=== PATIENT | male | born 1940 | race Asian ===

== ENCOUNTER 2016-12-18 15:51 | Emergency (ER) | payer OTHER, MEDICAID ==
[~2016-12-18] VITALS: Ht 167.6 cm; Wt 70.3 kg
[2016-12-18 16:00] VITALS: BP 179/73
[2016-12-18] MEDS ORDERED: Oxycodone/Acetaminophen 5-325 ORAL ONE (16:00)
[2016-12-18] MEDS ORDERED: PERCOCET 5-3251 EACH ORAL (17:16)
--- NOTE | 2016-12-18 17:28 | Diagnostic Imaging Report ---
Indications: PAIN Technique: Two views of the right humerus Comparison: None Findings: There is an oblique angulated fracture of the the distal humeral shaft, displaced by about one bone width. Impression: Positive for humeral fracture
--- NOTE | 2016-12-18 17:31 | Emergency Room Report ---
History of Present Illness General Chief Complaint: Upper Extremity Injury Source: Patient, Family Member Present Illness HPI [id number] BIBEMS with pain to right lateral aspect of humerus after accidental fall off 10ft ladder Patient allegedly drove home first, called son, who advised calling 911 Patient denies hitting head, LOC, other injury EMS states patient said he was NOT at top of ladder Not on AC, ASA pain is localized to lateral aspect of right humerus. Denies pain to shoulder, elbow, hand/wrist Allergies: Coded Allergies: No Known Allergies (Unverified , 12/18/16) Patient History Limited by: language barrier Past Medical History: none, see triage record Past Surgical History: none Pertinent Family History: none Social History: Denies: alcohol use, drug use, smoking Immunizations: UTD Reviewed Nursing Documentation: PMH: Agreed, PSxH: Agreed Nursing Documentation-PMH Past Medical History: No History, Except For Hx Hypertension: Yes Review of Systems All Other Systems: negative except mentioned in HPI Physical Exam Vital Signs Date Time Temp Pulse Resp B/P Pulse Ox O2 Delivery O2 Flow Rate FiO2 12/18/16 15:43 99.0 71 16 169/79 99 Room Air 12/18/16 16:00 2.0 Sp02 EP Interpretation: reviewed, normal General Appearance: normal inspection, well appearing, no apparent distress, alert, GCS 15, non-toxic Head: normocephalic, atraumatic Eyes: bilateral eye EOMI, bilateral eye PERRL ENT: normal ENT inspection, hearing grossly normal, normal voice Neck: normal inspection, full range of motion, supple, no bony tend Respiratory: normal inspection, lungs clear, normal breath sounds, no respiratory distress, no retraction, no wheezing Cardiovascular #1: regular rate, rhythm, no edema Gastrointestinal: normal inspection, normal bowel sounds, non tender, soft, no guarding, no hernia Genitourinary: no CVA tenderness Musculoskeletal: other - Right arm: obvious deformity and ttp to lateral aspect of right humerus. No pain and ROM to right shoulder intact. 2++ distal radius and brachial pulse. Sensation intact. Able to give thumbs up, OK sign with right hand. Neurovascularly intact. Neurologic: normal inspection, alert, oriented x3, responsive, electronic prepress technician III-XII nml as tested, motor strength/tone normal, speech normal Psychiatric: normal inspection, judgement/insight normal, mood/affect normal Skin: normal inspection, normal color, no rash Medical Decision Making Diagnostic Impression: Primary Impression: Fracture of humeral shaft, right, closed Qualified Codes: S42.301A - Unspecified fracture of shaft of humerus, right arm, initial encounter for closed fracture Additional Impression: Fall ER Course Right humeral shaft fracture neurovascularly intact Opiods PO given Coapatation splint placed with shoulder sling Spoke with son, advised PMD referral for Ortho tomorrow Rx Percocet DC home Other X-Ray Diagnostic Results Other X-Ray Diagnostic Results : X-Ray ordered: Right humerus # of Views/Limited Vs Complete: 3 View Indication: Pain EP Interpretation: Yes Interpretation: no dislocation, other - Right humeral shaft fracture Interpreting ER Provider: Electronically signed by Dr Kowalski Last Vital Signs Date Time Temp Pulse Resp B/P Pulse Ox O2 Delivery O2 Flow Rate FiO2 12/18/16 16:00 98.0 73 29 179/73 96 Nasal Cannula 2.0 Status: improved Disposition: HOME, SELF-CARE Condition: Improved Scripts Oxycodone/Acetaminophen 5-325* (PERCOCET 5-325 MG TABLET*) 1 Each Tablet 1 TAB ORAL Q6H Y for For Pain, #20 TAB Prov: JOSH KOWALSKI M.D. 12/18/16 Patient Instructions: Humerus Fracture Treated With Immobilization Additional Instructions: - You have a fracture of your mid-shaft of humerus - Keep splint on. - See Orthopedist in the next 1-2 days for followup - Take perocet as needed for severe pain JOSH KOWALSKI M.D. Dec 18, 2016 17:31
[2016-12-18 18:06] VITALS: BP 175/86
== END 2016-12-18 17:35 | disposition home or self-care (01) ==
LOC: EDBD 15:51 → EMR 16:43
DX: S42.301A Unspecified fracture of shaft of humerus, right arm, initial encounter for closed fracture (principal); W11.XXXA Fall on and from ladder, initial encounter; Y93.9 Activity, unspecified; Y92.9 Unspecified place or not applicable; I10 Essential (primary) hypertension
CPT/HCPCS: 29105; 29240; 99283